=== PATIENT | male | born 1975 | race Caucasian/White ===

== ENCOUNTER 2024-12-21 06:15 | Day surgery (SDC) | payer OTHER, SELFPAY | END 2024-12-21 14:49 | disposition home or self-care (01) | LOC: GI 06:15 | PROVIDERS: ATTENDING PHYSICIAN Internal Medicine Gastroenterology | DX: Z12.11 Encounter for screening for malignant neoplasm of colon (principal); K64.8 Other hemorrhoids; K63.5 Polyp of colon | CPT/HCPCS: 45385; 45381; 88305 ==